=== PATIENT | male | born 1970 | race Caucasian/White ===

== ENCOUNTER → 2018-10-30 | Outpatient (CLI) | payer OTHER ==
--- NOTE | 2018-11-06 14:50 | SLEEP ---
[facility] [address] [place] [address] SLEEP STUDY REPORT Name: AN AQUINO Room: [facility]#: [id number] Admission: 10/30/18 Attend Phys: Kehinde Linn MD Discharge: Date of : 66 Report #: [id number] THIS REPORT FOR: //name// CC: Kehinde Linn MD This study has been reviewed in its entirety by a board certified sleep specialist DATE OF SERVICE: 10/30/2018 HOME SLEEP STUDY ATTENDING PHYSICIAN: Kehinde Linn M.D. The patient is 47 years old who weighs 315 pounds with a BMI of 41.6. The patient's [place] score was 12. The patient underwent home sleep study performed at [facility]. Total recording time was 417 minutes. During the night study, the patient had 143 obstructive apneas, no mixed or central apneas and 248 hypopneas. The patient's apnea hypopnea index was 56 per hour with a supine index of 56 per hour as well. Nocturnal oximetry study revealed an average oxygen saturation of 90%, with a lowest of 75%; 122 minutes were spent in oxygen saturation less than 90%. Mean heart rate was 82 beats per minute with a maximum recorded heart rate of 151 beats per minute, which could be an artifact. IMPRESSION: 1. Severe sleep apnea-hypopnea syndrome at an apnea-hypopnea index of 56 per hour. 2. Nocturnal hypoxia secondary to obstructive sleep apnea. RECOMMENDATIONS: 1. The patient would benefit from in-lab CPAP titration study. 2. Once optimum CPAP pressure is achieved, then follow up in 4-6 weeks to assess compliance with CPAP and to document clinical improvement. 3. Weight loss is strongly advised. 4. Avoid GROUNDSKEEPER depressants. 5. Cautioned regarding driving until symptoms of sleep apnea resolve with the use of CPAP. <ELECTRONICALLY SIGNED> By: Chip Cardenas MD 11/06/18 [id number] [id number] Cardenas MD /nt
== END ==
LOC: M.SLEEPLAB 16:00
DX: G47.30 Sleep apnea, unspecified (principal)

== ENCOUNTER → 2020-02-18 | Outpatient (CLI) | payer OTHER | LOC: M.CT 11:00 | PROVIDERS: ATTEND Internal Medicine Cardiovascular Disease | DX: Z13.6 Encounter for screening for cardiovascular disorders (principal) ==